=== PATIENT | male | born 1980 | race Caucasian/White ===

== ENCOUNTER 2021-07-21 11:40 | Emergency (ER) | payer BC, SELFPAY ==
--- NOTE | 2021-07-21 11:48 | XR_ITS ---
PROCEDURE INFORMATION: Exam: XR Right Foot Exam date and time: 07/21/2021 11:48 AM Age: 40 years old Clinical indication: Pain; Heel; Right TECHNIQUE: Imaging protocol: XR Right foot. Views: 3 or more views. COMPARISON: No relevant prior studies available. FINDINGS: Bones/joints: There is no evidence of acute fracture.There is no evidence of malalignment or dislocation. No calcaneal spur at the insertion of the plantar fascia or Achilles tendon. Soft tissues: Normal. IMPRESSION: 1. There is no evidence of acute fracture.There is no evidence of malalignment or dislocation. 2. No calcaneal spur at the insertion of the plantar fascia or Achilles tendon.
[2021-07-21 13:10] VITALS: BP 192/111; PULSE 95; RESP 16; TEMP 36.9; O2SAT 99; BMI 33.9
--- NOTE | 2021-07-21 13:53 | HMH.EDUTC ---
[facility] [place] Disposition Clinical Impression: Right foot pain, Tendinitis of right foot Disposition: Home, Self-Care Condition on Discharge: Good Additional Instructions: Rest the extremity, apply ice for 15 minutes as tolerated three or four times per day, Elevate the extremity as tolerated while you are resting. Take ibuprofen for pain. I sent in a prescription to your pharmacy. Follow up with Dr. Guzman (podiatry). I put in a referral but you need to call his office and schedule an appointment. Follow up with your regular doctor. GO TO THE ER FOR ANY WORSENING SYMPTOMS Prescriptions: Ibuprofen [Ibuprofen 800mg Tablet] 800 mg PO Q8HP PRN #30 tab PRN Reason: Moderate Pain Transmission Status: Received by [id number] Referrals: Provider,Bonnie, [Primary Care Provider] - Estela Guzman DPM [Staff Physician] - Time of Disposition: 14:15 Medical Decision Making - Medical Records Medical records reviewed: No: I reviewed the patient's medical records. - Duong Inquiry Pt receiving controlled substance: No - Radiology Data #1 Image(s): Foot/Toes Image Reviewed: Yes I reviewed the patient's radiology image, Yes I have reviewed radiologist's interpretation Preliminary Findings: Normal/NAD, No Fracture Seen PROCEDURE INFORMATION: Exam: XR Right Foot Exam date and time: 07/21/2021 11:48 AM Age: 40 years old Clinical indication: Pain; Heel; Right TECHNIQUE: Imaging protocol: XR Right foot. Views: 3 or more views. COMPARISON: No relevant prior studies available. FINDINGS: Bones/joints: There is no evidence of acute fracture.There is no evidence of malalignment or dislocation. No calcaneal spur at the insertion of the plantar fascia or Achilles tendon. Soft tissues: Normal. IMPRESSION: 1. There is no evidence of acute fracture.There is no evidence of malalignment or dislocation. 2. No calcaneal spur at the insertion of the plantar fascia or Achilles tendon. [facility] [place] HPI - General Stated complaint: rt foot pain Time Seen by Provider: 07/21/21 13:53 - History of Present Illness Provider Complaint: He states that he has had pain of the back of his right foot for the past 4 days. His pain began after he worked and had to do a lot of kicking with the back of his foot to move some heavy pieces of wood. His pain is worse when he is walking. It hurts when he flexes the ankle. He denies significant swelling. - Related Data Previous Rx's Medication Instructions Recorded Ibuprofen [Ibuprofen 800mg 800 mg PO Q8HP PRN #30 tab 07/21/21 Tablet] [facility] History - Hepatitis A Screen Attestation statement:: This patient has been screened for Hepatitis A risk factors. I have reviewed the patient's past medical history: Yes ROS Obtained: Yes All systems reviewed & no additional complaints - Constitutional Constitutional: Denies chills, Denies fever(s) - Musculoskeletal Musculoskeletal: Reports as per HPI - Integumentary/Breasts Skin/Breast: Denies redness, Denies rash, Denies wounds - Neurologic Neurologic: Denies tingling/numbness/burning sensations Physical Exam - General General appearance: alert, in no apparent distress - Head Head exam: atraumatic, normocephalic, normal inspection - Eye Eye exam: Present: normal appearance, PERRL, EOMI - ENT ENT exam: Present: normal exam, normal oropharynx, mucous membranes moist, TM's normal bilaterally, normal external ear exam - Neck Neck exam: Present: normal inspection, full ROM, trachea midline. Absent: meningismus, lymphadenopathy - Chest Chest inspection: Present: normal inspection, symmetric chest wall rise. Absent: tenderness - Respiratory Respiratory exam: Present: normal lung sounds bilaterally. Absent: respiratory distress - Cardiovascular Cardiovascular exam: Present: regular rate, normal rhythm. Absent: JVD
[2021-07-21 14:31] VITALS: BP 185/103; PULSE 91; RESP 16; TEMP 36.9
== END 2021-07-21 14:37 | disposition home or self-care (01) ==
PROVIDERS: Emergency Provider Nurse Practitioner Family
DX: M77.51 Other enthesopathy of right foot and ankle (principal); X50.3XXA Overexertion from repetitive movements, initial encounter
CPT/HCPCS: 73630; 99202; G0463

== ENCOUNTER 2024-08-23 13:41 | Outpatient (CLI) | payer OTHER, SELFPAY ==
[2024-08-23 13:38] LABS: Basophils # 0.1 K/mm3 (0-0.2); Eosinophils # 0.1 K/mm3 (0.0-0.4); Eosinophils % 2.4 % (0.1-12.0); Hemoglobin 14.7 g/dL (14.1-18.0); Lymphocytes # 1.5 K/mm3 (0.7-4.5); Lymphocytes % 30.5 % (10-50); Mean Corpuscular HGB Conc 34.2 g/dL (31.8-35.4); Mean Corpuscular Hemoglobin 31.7 pg (27.0-31.2); Mean Corpuscular Volume 92.8 fl (80-94); Mean Platelet Volume 8.6 fl (7.4-10.4); Monocytes # 0.5 K/mm3 (0.1-1.0); Monocytes % 9.4 % (1.7-9.3); Neutrophils # 2.8 K/mm3 (1.8-7.8); Neutrophils % 56.6 % (37.0-80.0); Platelet Count 262 K/mm3 (142-424); Red Blood Count 4.63 M/mm3 (4.60-6.20); Red Cell Distribution Width 13.3 % (11.5-17.5)
[2024-08-23 15:29] LABS: Alanine Aminotransferase 89 U/L (12-78); Albumin Level 4.9 g/dl (3.5-5.0); Albumin/Globulin Ratio 2.7 (1.1-1.8); Alkaline Phosphatase 64 U/L (38-126); Anion Gap 15.1 mEq/L (5-15); Aspartate Amino Transferase 97 U/L (17-59); Bilirubin,Total 0.8 mg/dl (0.2-1.3); Blood Urea Nitrogen 9 mg/dl (9-20); Calcium 9.9 mg/dl (8.4-10.2); Carbon Dioxide 27 mmol/L (22.0-30.0); Chloride 100 mmol/L (98-107); Chol/HDL Ratio 3.8 (1-3.5); Cholesterol 198 mg/dl (140-200); Estimated Glomerular Filt Rate 105 ml/min (>60); GFR (African American) 126 ML/MIN (>60); Globulin 1.8 g/dL (1.3-3.2); Glucose 91 mg/dl (74-100); HDL Cholesterol 52 mg/dl (40-60); Potassium 4.1 mmoL/L (3.5-5.1); Sodium 138 mmol/L (136-145); Total Protein,Serum 6.7 g/dl (6.3-8.2); Triglycerides 201 mg/dl (30-150); Uric Acid 5.1 mg/dl (3.5-8.5); VLDL Cholesterol 40 mg/dL (0-40)
[2024-08-23 15:40] LABS: Direct LDL Cholesterol 126.01 mg/dL (100-129)
[2024-08-23 15:45] LABS: 25-OH Vitamin D, Total 35.9 ng/mL (30-100)
[2024-08-23 16:00] LABS: Thyroid Stimulating Hormone 1.71 uIU/mL (0.465-4.68)
[2024-08-23 16:41] LABS: Free T4 (Free Thyroxine) 0.87 ng/dl (0.78-2.19)
[2024-08-23 18:27] LABS: Hemoglobin A1C 5.2 % (4.0-6.0)
[2024-09-01 09:15] LABS: Testosterone, Total, LC/MS 415 ng/dL (.)
== END 2024-08-23 23:59 | disposition home or self-care (01) ==
LOC: LAB.DROPOF 13:41
PROVIDERS: PCP Internal Medicine; Visit Provider Internal Medicine
DX: M10.9 Gout, unspecified (principal); Z13.29 Encounter for screening for other suspected endocrine disorder; Z00.00 Encounter for general adult medical examination without abnormal findings; Z13.220 Encounter for screening for lipoid disorders; Z13.21 Encounter for screening for nutritional disorder; R53.83 Other fatigue; Z13.1 Encounter for screening for diabetes mellitus
CPT/HCPCS: 80050; 80053; 80061; 82306; 83036; 84403; 84439; 84443; 84550; 85025

== ENCOUNTER 2024-11-02 09:45 | Day surgery (SDC) | payer MEDICAID, SELFPAY ==
[2024-10-28 10:24] VITALS: BMI 31.4
[2024-11-02 11:12] VITALS: PULSE 94; RESP 18; TEMP 36.7; O2SAT 98
[2024-11-02] MEDS: LACTATED RINGERS 1000ML 1,000 ML 50 ML IV (11:22)
--- NOTE | 2024-11-02 11:35 | EXP.ANES.CKL ---
[facility] Disclaimer: The information contained in this section may have been updated after the patient was seen, as this information can be updated by other users. Medical History Hyperlipidemia Right testicular cancer Testical was removed Testicular cancer Hypertension Surgical History History of tonsillectomy Family History (Updated 11/02/24 @ 11:13 by Cheyanne Corona RN) Other No significant family history Social History Smoking Status: Never smoker alcohol intake: current alcohol intake frequency: a few times a week substance use type: denies use and other details: cbd drops for anxiety current occupational status: employed Travel in the last 8 weeks: None caffeine: Yes Have you lived/traveled outside [place] in past 30 days?: No Contact w/someone who lives/traveled outside [place] past 30 days?: No Exposure to someone with infectious disease in past 14 days?: No Do you have a fever (greater than 100.4 F or 38 C)?: No Have you tested positive for COVID-19: No Exposed to someone with COVID-19 in past 14 days?: No Do you have a sore throat?: No Do you have a cough?: No Do you have any weakness?: No Are you experiencing any nausea/vomitting?: No Do you have any diarrhea?: No Are you experiencing any unusual bleeding?: No Do you have any muscle aches/pain?: No Do you have any abdominal pain?: No Are you experiencing loss of taste or smell?: No [facility] Anesthesia Checklist Patient Identification Patient Identification: Verbal (Name & ) Structural Data Admitted From: Home Planned Operative Procedure/s: colonoscopy Consent for Planned Operative Procedure(s) Verified: Yes NPO Status Verified Time NPO: 00:00 Airway Assessment Mallampati Score:: Class II C-Spine Mobility Assessed: Yes TMJ Mobility Assessed: Yes Dentition: Good Dentition Neurological Assessment Level of Consciousness: Awake, Alert and Appropriate Anesthesia Plan Anesthesia Risk discussed: Yes Anesthesia Plan: Verified ASA Class: II Anesthesia Type: MAC
--- NOTE | 2024-11-02 11:54 | EXP.HP ---
History of Present Illness *Admission Date: 11/02/24 *Reason for visit:: Initial screening colonoscopy *History of present illness: Mr. Mchugh is a 44-year-old gentleman who is here for initial screening colonoscopy. The examination is deemed medically necessary for screening colonoscopy. The patient has been seen, interviewed and examined prior to the procedure by both myself and the anesthesia provider. [facility] Disclaimer: The information contained in this section may have been updated after the patient was seen, as this information can be updated by other users. Medical History Hyperlipidemia Right testicular cancer Testical was removed Testicular cancer Hypertension Surgical History History of tonsillectomy Family History (Updated 11/02/24 @ 11:13 by Cheyanne Corona RN) Other No significant family history Social History Smoking Status: Never smoker alcohol intake: current alcohol intake frequency: a few times a week substance use type: denies use and other details: cbd drops for anxiety current occupational status: employed Travel in the last 8 weeks: None caffeine: Yes Have you lived/traveled outside [place] in past 30 days?: No Contact w/someone who lives/traveled outside [place] past 30 days?: No Exposure to someone with infectious disease in past 14 days?: No Do you have a fever (greater than 100.4 F or 38 C)?: No Have you tested positive for COVID-19: No Exposed to someone with COVID-19 in past 14 days?: No Do you have a sore throat?: No Do you have a cough?: No Do you have any weakness?: No Are you experiencing any nausea/vomitting?: No Do you have any diarrhea?: No Are you experiencing any unusual bleeding?: No Do you have any muscle aches/pain?: No Do you have any abdominal pain?: No Are you experiencing loss of taste or smell?: No Other Medical History Have you received the Pneumonia Vaccine: No Review of Systems Review of Systems Review of systems (narrative): Negative *Cardiovascular Comments: Negative *Gastrointestinal Comments: Negative *Genitourinary Comments: Negative *Musculoskeletal Comments: Negative *Neurologic Comments: Negative Meds Home Medications and Allergies Home Medications ?Medication ?Instructions ?Recorded ?Confirmed ?Type allopurinol 300 mg tablet 150 mg PO DAILY 08/09/24 11/02/24 History buspirone 10 mg tablet 10 mg PO BID #60 tabs 08/09/24 11/02/24 Rx fenofibrate 160 mg tablet 160 mg PO DAILY 08/09/24 11/02/24 History lisinopril 40 mg tablet 40 mg PO DAILY 08/09/24 11/02/24 History omeprazole 20 mg capsule,delayed 20 mg PO DAILY 08/09/24 11/02/24 History release atorvastatin 10 mg tablet See Rx Instructions .Route 08/24/24 11/02/24 Rx .COMPLEX #30 tabs sodium,potassium,mag sulfates 17.5 See Rx Instructions PO .COMPLEX 10/21/24 11/02/24 Rx gram-3.13 gram-1.6 gram oral soln #354 mL (Suprep Bowel Prep Kit) New Prescriptions to Start Prescriptions: Allergies Allergy/AdvReac Type Severity Reaction Status Date / Time No Known Allergies Allergy Verified 11/02/24 11:10 Exam Data for Last 24 hours Vital signs and Labs for Last 24 Hours: Temp Pulse Resp Pulse Ox O2 Del Method 98.1 F 94 H 18 98 Room Air 11/02/24 11:12 11/02/24 11:12 11/02/24 11:12 11/02/24 11:12 11/02/24 11:12 *Routine HEENT Exam Head: Present normocephalic Eye: Present EOMI and PERRL ENT: Present mucous membranes moist *Routine Neck Exam Neck: Present supple *Routine Respiratory Exam Respiratory: Present CTA bilaterally *Routine Cardiovascular Exam Cardiovascular: Present RRR *Routine Abdominal Exam Abdominal: Present soft and normoactive bowel sounds; Absent tenderness *Routine Rectal Exam Rectal:: deferred *Routine Genitalia Exam Genitalia:: deferred *Routine Extremities Exam Extremities: Absent cyanosis, clubbing or edema *Routine Skin Exam Skin: Present warm; Absent rash *Routine Neurological Exam Neurological: Present alert and oriented X3 Assessment and Plan *Assessment and plan (1) Screening for colon cancer: Status: Acute Category: Medical Code(s): Z12.11 - Encounter for screening for malignant neoplasm of colon Plan A/P: 1. Screening for colon cancer is the preprocedural diagnosis. The patient will be anesthetized/sedated using MAC sedation. The patient has been seen and examined. Cardiac and lung assessment prior to the examination is stable. Proceed with planned screening colonoscopy
[2024-11-02 12:00] VITALS: O2SAT 100
--- NOTE | 2024-11-02 12:08 | HMH.PROCNOTE ---
[facility] [place] Procedure Note Date: 11/02/24 Time: 12:30 Procedure Note:: Colonoscopy Procedure Report: Colonoscopy with cold snare polypectomy Endoscopist: Ron Heard II, MD Referring physician: Delmar Downs DO Date of Procedure: November 02, 2024 Equipment: Olympus 190 variable stiffness pediatric colonoscope Sedation: MAC sedation Indication: Mr. Mchugh is a 44-year-old gentleman who is here for initial screening colonoscopy. He reports no abdominal pain, weight loss, change in his bowel habits or rectal bleeding. He reports that his paternal uncle presumably had colon cancer at an older age. Procedure: Prior to the procedure, a history and physical exam was performed, and patient's medications and allergies were reviewed. The risks, benefits and alternatives of the sedation and procedure were discussed with the patient. All questions were answered and informed consent was obtained. The patient was brought to the procedure room. Patient identification and proposed procedure were verified by the physician and the nurse. The patient was placed in a left lateral decubitus position and the scope was passed under direct vision. Throughout the procedure, the patient's blood pressure, pulse, and oxygen saturations were monitored continuously. The colonoscopy was accomplished without difficulty. The patient tolerated the procedure well. Findings: On digital rectal examination there was normal rectal tone. There were no external hemorrhoids. The prostate was 2+, smooth, soft, symmetric without nodules. The colonoscope was introduced through the anal canal to the rectum and advanced to the cecum. The ileocecal valve and appendiceal orifice were identified. The scope was advanced a short distance into the ileum which appeared grossly normal. The scope was then withdrawn into the colon. There were 5 polyps (ascending x 1 (8 mm), transverse x 2 (3 and 4 mm), descending x 1 (4 mm) and sigmoid x 1 (2 mm)). These were all removed via cold snare polypectomy. The remaining cecum, ascending and transverse colon and mucosa were grossly normal. There were very mildly shallow scattered diverticuli within the sigmoid colon (LEFT colon). The rectum itself was normal. Upon retroflexion within the rectum there were grade 1-2 internal hemorrhoids. The preparation was excellent throughout with Holcomb Preparation Score of 9. The cecal time was 14 minutes. Impression: 1. Diminutive colonic polyps x 5 2. Mild sigmoid diverticulosis 3. Grade 1-2 internal hemorrhoids Plan: I will follow-up the polyp histology and recommend repeat surveillance colonoscopy again in 3 to 5 years based upon the pathology. I would encourage psyllium bulking fiber supplementation on a maintenance basis.
[2024-11-02 12:31] VITALS: BP 150/100; PULSE 83; RESP 18; TEMP 36.1; O2SAT 97
[2024-11-02 12:41] VITALS: BP 147/100; PULSE 74; RESP 16; O2SAT 97
[2024-11-02 12:51] VITALS: BP 159/102; PULSE 76; RESP 16; O2SAT 96
[2024-11-02 13:01] VITALS: BP 153/100; PULSE 82; RESP 18; O2SAT 97
== END 2024-11-02 13:15 | disposition home or self-care (01) ==
PROVIDERS: PCP Internal Medicine; Visit Provider Internal Medicine Gastroenterology
PROC: 0DJD8ZZ Inspection of Lower Intestinal Tract, Via Natural or Artificial Opening Endoscopic (ICD-10-PCS; CPT 45378; principal; 2024-11-02 11:30)
DX: Z12.11 Encounter for screening for malignant neoplasm of colon (principal); K63.5 Polyp of colon; K57.30 Diverticulosis of large intestine without perforation or abscess without bleeding; K44.9 Diaphragmatic hernia without obstruction or gangrene
CPT/HCPCS: 45385; J2704; J7120

== ENCOUNTER 2025-02-07 09:51 | Outpatient (CLI) | payer MEDICAID, SELFPAY ==
[2025-02-07 14:18] LABS: Chol/HDL Ratio 3.3 (1-3.5); Cholesterol 197 mg/dl (140-200); HDL Cholesterol 60 mg/dl (40-60); Triglycerides 226 mg/dl (30-150); VLDL Cholesterol 45 mg/dL (0-40)
[2025-02-07 14:30] LABS: Direct LDL Cholesterol 112.12 mg/dL (100-129)
== END 2025-02-07 23:59 | disposition home or self-care (01) ==
LOC: LAB.DROPOF 02-09 09:52
PROVIDERS: PCP Internal Medicine; Visit Provider Internal Medicine
DX: M10.9 Gout, unspecified (principal); E78.5 Hyperlipidemia, unspecified
CPT/HCPCS: 80061; 84550

== ENCOUNTER 2025-02-28 13:28 | Outpatient (CLI) | payer MEDICAID, SELFPAY ==
--- NOTE | 2025-02-28 13:45 | US_ITS ---
FINAL REPORT TECHNIQUE: Ultrasound examination of the submandibular glands and parotid glands was performed. CLINICAL HISTORY: right parotitis COMPARISON: None FINDINGS: SALIVARY GLANDS ULTRASOUND: Ultrasound examination was performed of the submandibular and parotid glands bilaterally. On the right side, the submandibular gland measures 3 cm in greatest diameter, and the parotid gland measures 5.6 cm in greatest diameter, without evidence of focal mass or fluid collection. On the left side, the submandibular gland measures 3 cm in greatest diameter, and the parotid gland measures 5.5 cm in greatest diameter, without evidence of focal mass or fluid collection. A single small lymph node is noted adjacent to the left parotid gland measuring 7 mm, normal in size. IMPRESSION: No focal mass or fluid collection is identified in the parotid or submandibular glands on either side. A single small lymph node adjacent to the left parotid gland measures 7 mm in size, within normal limits. Reviewed, Interpreted and Dictated by Manuelito Frye MD Transcribed by Asiya Paulino Authenticated and [facility]
== END 2025-02-28 23:59 | disposition home or self-care (01) ==
LOC: RAD 13:29
PROVIDERS: PCP Internal Medicine; Visit Provider Nurse Practitioner Family
DX: K11.20 Sialoadenitis, unspecified (principal)
CPT/HCPCS: 76536